=== PATIENT | male | born 1950 | race Caucasian/White ===

== ENCOUNTER 2017-04-05 14:45 | Emergency (ER) | payer MEDICARE ==
[~2017-04-05] VITALS: Ht 185.4 cm; Wt 73.0 kg
[~2017-04-05 14:45] MED LIST: ALPR0.5T99 PO; ASPI81 PO; CALC600T34 PO; CYCL-36 PO; ENAL5TAB98 PO; FERR65TA PO; HYDR-3533 PO; LOVA1TAB47 PO; NITR0.4S SL; TAMS0.4C67 PO; VITA10002 SL
[2017-04-05 14:47] VITALS: BP 145/82; PULSE 81; RESP 20; TEMP 98.4; O2SAT 96
--- NOTE | 2017-04-05 15:11 | PD ---
Physical Exam Date Seen by Provider: Apr 05, 2017 Time Seen by Provider: 15:09 Narrative 67 yo male here for evaluation of "something lodged on his throat". he states that it was possibly food. Feels like it was stuck. States that he drank water and now is better. he just wanted to get checked. Vitals are stable. Patient waiting bed placement. Data Data Last Documented VS Vital Signs Date Time Temp Pulse Resp B/P Pulse Ox O2 Delivery O2 Flow Rate FiO2 04/05/17 14:47 98.4 81 20 145/82 96 Room Air [facility] Medical Record Reviewed: Yes Supervised Visit with ANAY: No Compa Brice Apr 05, 2017 15:11
== END 2017-04-05 15:10 | disposition left against medical advice (07) ==
LOC: NED 14:45
DX: T18.128A Food in esophagus causing other injury, initial encounter (principal); Z53.21 Procedure and treatment not carried out due to patient leaving prior to being seen by health care provider
CPT/HCPCS: 99281

== ENCOUNTER 2018-01-18 08:36 | Observation (INO) | payer MEDICARE ==
[2018-01-18] VITALS (9 sets, daily range): BP systolic 138–167; BP diastolic 71–88; PULSE 58–68; RESP 16–18; TEMP 97.4–98.4; O2SAT 96–100
[~2018-01-18] VITALS: Ht 190.5 cm; Wt 72.6 kg
[2018-01-18] MEDS ORDERED: IOHEXOL 350 MG/ML 10 ML VIAL (for RAD DIAG) IVCONTRAST ONE (08:37)
[2018-01-18] MEDS ORDERED: MULT-65 PO (08:49)
[2018-01-18] MEDS ORDERED: ASPI-516 PO (08:49)
[2018-01-18] MEDS ORDERED: ALPR0.5T3 PO (08:49)
[2018-01-18] MEDS ORDERED: TRAM50TA PO (08:49)
[2018-01-18] MEDS ORDERED: TAMS5CAP PO (08:49)
[2018-01-18] MEDS ORDERED: PANT40TA3 PO (08:49)
[2018-01-18] MEDS ORDERED: SODIUM CHLOR 0.9% 1000 ML INJ 1,000 ML IV SCH (09:07)
[2018-01-18] MEDS: SODIUM CHLORIDE 0.9% FLUSH 10 ML FLUSH IV FLUSH PRN ×2 (09:14→15:17)
[2018-01-18] MEDS ORDERED: ONDANSETRON HCL 4 MG/2 ML VIAL IVP ONE (09:15)
[2018-01-18] MEDS ORDERED: MORPHINE SULFATE 4 MG/ML INJ IV PUSH ONE (09:15)
[2018-01-18 09:34] LABS: AUTOMATED NEUTROPHIL # 5.6 TH/MM3 (1.8-7.7); BASOPHIL # 0.1 TH/MM3 (0-0.2); EOSINOPHIL # 0.2 TH/MM3 (0-0.4); EOSINOPHIL % 2.2 % (0.0-4.0); HEMATOCRIT 38.5 % (39.0-51.0); HEMOGLOBIN 13.1 GM/DL (13.0-17.0); LYMPH % 9.2 % (9.0-44.0); LYMPHOCYTE # 0.6 TH/MM3 (1.0-4.8); MEAN CELL VOLUME 90.7 FL (80.0-100.0); MEAN CORPUSCULAR HGB CONC 34.2 % (32.0-36.0); MEAN PLATELET VOLUME 8.6 FL (7.0-11.0); MONO % 8.1 % (0.0-8.0); MONOCYTE # 0.6 TH/MM3 (0-0.9); NEUT % 79.5 % (16.0-70.0); PLATELET COUNT 196 TH/MM3 (150-450); RED BLOOD COUNT 4.24 MIL/MM3 (4.50-5.90); RED CELL DISTRIBUTION WIDTH 13.8 % (11.6-17.2)
[2018-01-18 09:46] LABS: ALBUMIN 4.3 GM/DL (3.4-5.0); AST (GOT) 22 U/L (15-37); BLOOD UREA NITROGEN 25 MG/DL (7-18); CALCIUM 9.4 MG/DL (8.5-10.1); CHLORIDE 104 MEQ/L (98-107); CREATININE 1.17 MG/DL (0.60-1.30); GLOMERULAR FILTRATION RATE 62 ML/MIN (>89); GLUCOSE,RANDOM 105 MG/DL (74-106); SODIUM (NA) 138 MEQ/L (136-145)
[2018-01-18 09:47] LABS: ALT (GPT) 29 U/L (12-78)
[2018-01-18 09:49] LABS: ALKALINE PHOSPHATASE 82 U/L (45-117); TOTAL BILIRUBIN ADULT 0.8 MG/DL (0.2-1.0); TOTAL PROTEIN 8.1 GM/DL (6.4-8.2)
[2018-01-18] MEDS ORDERED: FLUO20CA12 PO (09:59)
[2018-01-18] MEDS ORDERED: ATOR10TA15 PO (10:00)
[2018-01-18 11:13] LABS: BACTERIA, URINE RARE /hpf; BILIRUBIN, URINE NEG (NEG); BLOOD, URINE MOD (NEG); GLUCOSE,URINE NEG (NEG); KETONE, URINE 10 mg/dL (NEG); MUCUS URINE FEW /lpf (OCC); NITRITE,URINE NEG (NEG); SQUAMOUS EPITHELIAL CELL URINE <1 /hpf (0-5); URINE COLOR YELLOW (YELLW/STRAW); URINE LEUKOCYTE ESTERASE NEG (NEG)
--- NOTE | 2018-01-18 13:11 | PD ---
HPI Chief Complaint: Lump, Cyst, Hernia Time Seen by Provider: 09:07 Travel History International Travel<30 days: No Contact w/Intl Traveler<30days: No Traveled to known affect area: No History of Present Illness HPI This is a 67-year-old gentleman with history of hyperlipidemia, BPH, presents today with complaints of right-sided groin pain and right-sided flank pain. Patient states that he has had a hernia in his right inguinal area. He states normally has a small lump in that area. He states that last night he was having some discomfort in his right groin. He states that when he woke up this morning, he noted that the lump that he normally has in his groin was gone. He reports severe pain in his right-sided flank radiating to his right groin. He denies any history of kidney stones. He denies any history of abdominal surgery. He states he still has his appendix. He denies any fevers, chills. He does report he had some mild nausea earlier but none now. He has noted no blood in his urine. PFSH Past Medical History Arthritis: No Asthma: No Atrial Fibrillation: Yes Blood Disorders: No Heart Rhythm Problems: Yes Cancer: No Cardiovascular Problems: Yes High Cholesterol: No Chemotherapy: No Chest Pain: Yes Congestive Heart Failure: Yes COPD: No Diminished Hearing: No Endocrine: No Hypertension: Yes Immune Disorder: No Implanted Vascular Access Dvce: Yes Musculoskeletal: Yes (BACK PROBLEMS) Psychiatric: No Reproductive: No Respiratory: No Radiation Therapy: No Sleep Apnea: No Tetanus Vaccination: < 5 Years Influenza Vaccination: Yes Past Surgical History Abdominal Surgery: No AICD: Yes Arteriovenous Shunt: No Cardiac Surgery: Yes (AICD/PACER) Ear Surgery: No Endocrine Surgery: No Eye Surgery: No Genitourinary Surgery: No Gynecologic Surgery: No Insulin Pump: No Joint Replacement: No Oral Surgery: No Pacemaker: Yes Thoracic Surgery: No Tonsillectomy: Yes Other Surgery: Yes Social History Alcohol Use: No Tobacco Use: No (quit 20 years ago) Substance Use: No Allergies-Medications (Allergen,Severity, Reaction): Coded Allergies: No Known Allergies (Verified Adverse Reaction, Unknown, 01/18/18) Reported Meds & Prescriptions Reported Meds & Active Scripts Active Reported Atorvastatin (Atorvastatin Calcium) 10 Mg Tab 10 Mg PO HS Fluoxetine (Fluoxetine HCl) 20 Mg Capsule 20 Mg PO DAILY Multi-Vitamin Daily (Multiple Vitamin) 1 Tab Tab 1 Tab PO DAILY Aspirin 81 Mg Chew 81 Mg PO DAILY Flomax (Tamsulosin HCl) 0.4 Mg Cap 0.4 Mg PO HS Pantoprazole (Pantoprazole Sodium) 40 Mg Tab 40 Mg PO DAILY Alprazolam 0.5 Mg Tab 0.5 Mg PO DAILY PRN Tramadol (Tramadol HCl) 50 Mg Tab 50 Mg PO Q8H PRN Review of Systems Except as stated in HPI: all other systems reviewed are Neg General / Constitutional: No: Chills HENT: No: Headaches, Neck Pain Cardiovascular: No: Chest Pain or Discomfort, Palpitations Respiratory: No: Cough, Shortness of Breath Gastrointestinal: Positive: Nausea, Abdominal Pain (Right lower), No: Vomiting , Diarrhea Genitourinary: Positive: Other (Normally a inguinal fullness, none now.), No: Dysuria, Hematuria Musculoskeletal: No: Weakness, Pain Skin: No Other Neurologic: No: Weakness, Dizziness, Headache Physical Exam Narrative GENERAL: Well-developed well-nourished male in no acute respiratory distress. SKIN: Focused skin assessment warm/dry. HEAD: Atraumatic. Normocephalic. EYES: No scleral icterus. No injection or drainage. ENT: No nasal bleeding or discharge. Mucous membranes pink and moist. NECK: Trachea midline. No JVD. CARDIOVASCULAR: Regular rate and rhythm. No murmur appreciated. RESPIRATORY: No accessory muscle use. Clear to auscultation. Breath sounds equal bilaterally. GASTROINTESTINAL: Abdomen soft, non-tender, nondistended. Hepatic and splenic margins not palpable. There is no rebound or guarding. Patient states of pain feels deeper than where I am palpating. There is no inguinal hernia appreciated. MUSCULOSKELETAL: No obvious deformities. No clubbing. No cyanosis. No edema. BACK: No CVA tenderness. No rash. NEUROLOGICAL: Awake and alert. No obvious cranial nerve deficits. Motor grossly within normal limits. Normal speech. PSYCHIATRIC: Appropriate mood and affect; insight and judgment normal. Data Data Last Documented VS Vital Signs Date Time Temp Pulse Resp B/P (MAP) Pulse Ox O2 Delivery O2 Flow Rate FiO2 01/18/18 15:41 97.9 68 16 158/76 (103) 99 Room Air Orders Orders Complete Blood Count With Diff (01/18/18 09:07) Comprehensive Metabolic Panel (01/18/18 09:07) Lipase (01/18/18 09:07) Urinalysis - C+S If Indicated (01/18/18 09:07) Iv Access Insert/Monitor (01/18/18 09:07) Ecg Monitoring (01/18/18 09:07) Oximetry (01/18/18 09:07) Morphine Inj (Morphine Inj) (01/18/18 09:15) Ondansetron Inj (Zofran Inj) (01/18/18 09:15) Sodium Chlor 0.9% 1000 Ml Inj (Ns 1000 M (01/18/18 09:07) Sodium Chloride 0.9% Flush (Ns Flush) (01/18/18 09:15) Ct Abd/Pel W Iv Contrast(Rout) (01/18/18 11:34) Iohexol 350 Inj (Omnipaque 350 Inj) (01/18/18 08:37) Morphine Inj (Morphine Inj) (01/18/18 15:15) Vital Signs (Adult) Q4H (01/18/18 15:30) Activity Oob With Assistance (01/18/18 15:30) Diet Npo (01/18/18 Dinner) Sodium Chlor 0.9% 1000 Ml Inj (Ns 1000 M (01/18/18 16:00) Sodium Chloride 0.9% Flush (Ns Flush) (01/18/18 15:30) Sodium Chloride 0.9% Flush (Ns Flush) (01/18/18 21:00) Acetaminophen (Tylenol) (01/18/18 15:30) Ondansetron Inj (Zofran Inj) (01/18/18 15:30) Basic Metabolic Panel (Bmp) (01/19/18 06:00) Complete Blood Count With Diff (01/19/18 06:00) Scd Bilateral/Knee High HAIR.BID (01/18/18 15:30) Naloxone Inj (Narcan Inj) (01/18/18 15:30) Docusate Sodium-Senna (Nikki-Colace) (01/18/18 21:00) Magnesium Hydroxide Liq (Milk Of Magnesi (01/18/18 15:30) Consult Urology (01/18/18 ) Urinary Catheter Management HAIR.Q8H (01/18/18 15:30) Morphine Inj (Morphine Inj) (01/18/18 15:45) Acetamin-Hydrocod 325-5 Mg ([place] 5-325 (01/18/18 15:45) Alprazolam (Xanax) (01/18/18 15:45) Atorvastatin (Lipitor) (01/18/18 21:00) Pantoprazole (Protonix) (01/19/18 09:00) Tamsulosin (Flomax) (01/18/18 21:00) (Hub Use Only)Inp Phy Cons/Ref (01/18/18 ) Admit Order (Ed Use Only) (01/18/18 15:59) Labs Laboratory Tests Test 01/18/18 09:11 01/18/18 10:30 White Blood Count 7.0 TH/MM3 Red Blood Count 4.24 MIL/MM3 Hemoglobin 13.1 GM/DL Hematocrit 38.5 % Mean Corpuscular Volume 90.7 FL Mean Corpuscular Hemoglobin 31.0 PG Mean Corpuscular Hemoglobin Concent 34.2 % Red Cell Distribution Width 13.8 % Platelet Count 196 TH/MM3 Mean Platelet Volume 8.6 FL Neutrophils (%) (Auto) 79.5 % Lymphocytes (%) (Auto) 9.2 % Monocytes (%) (Auto) 8.1 % Eosinophils (%) (Auto) 2.2 % Basophils (%) (Auto) 1.0 % Neutrophils # (Auto) 5.6 TH/MM3 Lymphocytes # (Auto) 0.6 TH/MM3 Monocytes # (Auto) 0.6 TH/MM3 Eosinophils # (Auto) 0.2 TH/MM3 Basophils # (Auto) 0.1 TH/MM3 CBC Comment DIFF FINAL Differential Comment Blood Urea Nitrogen 25 MG/DL Creatinine 1.17 MG/DL Random Glucose 105 MG/DL Total Protein 8.1 GM/DL Albumin 4.3 GM/DL Calcium Level 9.4 MG/DL Alkaline Phosphatase 82 U/L Aspartate Amino Transf (AST/SGOT) 22 U/L Alanine Aminotransferase (ALT/SGPT) 29 U/L Total Bilirubin 0.8 MG/DL Sodium Level 138 MEQ/L Potassium Level 3.3 MEQ/L Chloride Level 104 MEQ/L Carbon Dioxide Level 24.0 MEQ/L Anion Gap 10 MEQ/L Estimat Glomerular Filtration Rate 62 ML/MIN Lipase 144 U/L Urine Color YELLOW Urine Turbidity CLEAR Urine pH 6.0 Urine Specific [place] 1.017 Urine Protein TRACE mg/dL Urine Glucose (UA) NEG mg/dL Urine Ketones 10 mg/dL Urine Occult Blood MOD Urine Nitrite NEG Urine Bilirubin NEG Urine Urobilinogen LESS THAN 2.0 MG/DL Urine Leukocyte Esterase NEG Urine RBC 100 /hpf Urine Squamous Epithelial Cells <1 /hpf Urine Bacteria RARE /hpf Urine Mucus FEW /lpf Microscopic Urinalysis Comment CULT NOT INDICATED MDM Medical Decision Making Medical Screen Exam Complete: Yes Emergency Medical Condition: Yes Differential Diagnosis Renal calculus versus appendicitis versus cystitis Narrative Course 67-year-old male presents today with complaints of left flank pain with radiation to his groin. Patient's very uncomfortable. He has been dosed twice with pain medication. CT scan shows a 7 mm ureteral calculus with significant hydronephrosis. Patient also has what appears to be urinary outlet obstruction secondary to an enlarged prostate. The patient is extremely uncomfortable. Given this, I would recommend admitting him for pain control. We are also going to perform a bladder scan to see if he has got a significant postvoid residual. There is a call out to the [facility]. He will also need a urology consult. Diagnosis Primary Impression: Obstructive uropathy Additional Impressions: Urinary outlet obstruction Ureteral and renal calculus Intractable pain Admitting Information Admitting Physician Requests: Observation Jose R Harman MD Jan 18, 2018 13:11
[2018-01-18] MEDS ORDERED: MORPHINE SULFATE 8 MG/ML INJ IV PUSH ONE (15:15)
[2018-01-18] MEDS ORDERED: SODIUM CHLORIDE 0.9% FLUSH 10 ML FLUSH IV FLUSH PRN (15:30)
[2018-01-18] MEDS ORDERED: NALOXONE HCL 0.4 MG/ML AMP IV PUSH PRN (15:30)
[2018-01-18] MEDS ORDERED: MAGNESIUM HYDROXIDE SUSP 30 ML CUP PO PRN (15:30)
[2018-01-18] MEDS ORDERED: ACETAMINOPHEN 325 MG TAB PO PRN (15:30)
[2018-01-18] MEDS ORDERED: ONDANSETRON HCL 4 MG/2 ML VIAL IVP PRN (15:30)
[2018-01-18] MEDS ORDERED: ALPRAZolam 0.5 MG TAB PO PRN (15:45)
[2018-01-18] MEDS ORDERED: ACETAMINOPHEN/HYDROcodone 325 MG/5 MG TAB PO PRN (15:45)
--- NOTE | 2018-01-18 15:46 | HHI.HP ---
HPI Service [facility] Primary Care Physician Teofilo Finney MD, PhD Admission Diagnosis obstructing ureteral calculi with hydronephrosis and bladder outlet obstruction Chief Complaint: right flank pain Travel History International Travel<30 Days: No Contact w/Intl Traveler <30 Da: No Traveled to Known Affected Are: No History of Present Illness This 67-year-old male patient with past medical history which includes atrial fibrillation status post ablation and AICD placement [address] Callejas, COPD, CHF echocardiogram 2015: Reveals EF of 55-60% with grade 1 diastolic dysfunction , hyperlipidemia, lumbar degenerative disc disease, anxiety and BPH. Patient presents emergency department today with complaints of severe right-sided flank pain with radiation to the right groin. Patient denies shortness of breath chest pain nausea vomiting diarrhea constipation fevers or chills. CT abdomen pelvis reviewed and reveals obstructing ureteral calculi with hydronephrosis and bladder outlet obstruction Review of Systems Constitutional: DENIES: Fatigue, Fever, Chills Respiratory: DENIES: Cough, Sputum production, Shortness of breath Cardiovascular: DENIES: Chest pain, Dyspnea on Exertion, Lower Extremity Edema Gastrointestinal: COMPLAINS OF: Abdominal pain, DENIES: Constipation, Diarrhea , Nausea, Vomiting Genitourinary: DENIES: Hematuria Musculoskeletal: COMPLAINS OF: Back pain (Right flank area) Neurologic: DENIES: Headache, Localized weakness, Speech Problems Psychiatric: DENIES: Anxiety, Confusion, Depression Past Family Social History Past Medical History atrial fibrillation status post ablation and AICD placement [address] Callejas , COPD, CHF transthoracic echocardiogram 2015: Reveals EF of 55-60% with grade 1 diastolic dysfunction, hyperlipidemia, lumbar degenerative disc disease, anxiety and BPH Past Surgical History Atrial fibrillation ablation and AICD placement 2014 Cataract surgery Tonsillectomy Reported Medications Atorvastatin (Atorvastatin Calcium) 10 Mg Tab 10 Mg PO HS Fluoxetine (Fluoxetine HCl) 20 Mg Capsule 20 Mg PO DAILY Multi-Vitamin Daily (Multiple Vitamin) 1 Tab Tab 1 Tab PO DAILY Aspirin 81 Mg Chew 81 Mg PO DAILY Flomax (Tamsulosin HCl) 0.4 Mg Cap 0.4 Mg PO HS Pantoprazole (Pantoprazole Sodium) 40 Mg Tab 40 Mg PO DAILY Alprazolam 0.5 Mg Tab 0.5 Mg PO DAILY Tramadol (Tramadol HCl) 50 Mg Tab 50 Mg PO Q8H PRN Allergies: Coded Allergies: No Known Allergies (Verified Adverse Reaction, Unknown, 01/18/18) Family History Noncontributory Social History Denies EtOH use or illicit drug use Denies current tobacco use former smoker quit in Physical Exam Vital Signs Vital Signs Date Time Temp Pulse Resp B/P (MAP) Pulse Ox O2 Delivery O2 Flow Rate FiO2 01/18/18 14:24 97.9 67 16 156/82 (106) 100 Room Air 01/18/18 11:30 97.8 67 16 138/76 (96) 96 Room Air 01/18/18 09:58 97.8 60 16 167/88 (114) 100 Room Air 01/18/18 09:20 17 01/18/18 09:08 17 100 Room Air 01/18/18 08:50 60 17 01/18/18 08:38 98.1 58 18 149/83 (105) 100 Physical Exam GENERAL: This is a well-nourished, well-developed patient, SKIN: No rashes, ecchymoses or lesions. Cool and dry. HEAD: Atraumatic. Normocephalic. No temporal or scalp tenderness. EYES: Extraocular motions intact. No scleral icterus. No injection or drainage. CARDIOVASCULAR: Regular rate and rhythm RESPIRATORY: Clear to auscultation. Breath sounds equal bilaterally. GASTROINTESTINAL: Abdomen soft, non-tender, nondistended. MUSCULOSKELETAL: Extremities without clubbing, cyanosis, or edema. No joint tenderness, effusion, or edema noted. No calf tenderness. Negative Homans sign bilaterally. NEUROLOGICAL: Awake and alert. Motor and sensory grossly within normal limits. Five out of 5 muscle strength in all muscle groups. Normal speech. Laboratory Laboratory Tests Test 01/18/18 09:11 01/18/18 10:30 White Blood Count 7.0 Red Blood Count 4.24 Hemoglobin 13.1 Hematocrit 38.5 Mean Corpuscular Volume 90.7 Mean Corpuscular Hemoglobin 31.0 Mean Corpuscular Hemoglobin Concent 34.2 Red Cell Distribution Width 13.8 Platelet Count 196 Mean Platelet Volume 8.6 Neutrophils (%) (Auto) 79.5 Lymphocytes (%) (Auto) 9.2 Monocytes (%) (Auto) 8.1 Eosinophils (%) (Auto) 2.2 Basophils (%) (Auto) 1.0 Neutrophils # (Auto) 5.6 Lymphocytes # (Auto) 0.6 Monocytes # (Auto) 0.6 Eosinophils # (Auto) 0.2 Basophils # (Auto) 0.1 CBC Comment DIFF FINAL Differential Comment Blood Urea Nitrogen 25 Creatinine 1.17 Random Glucose 105 Total Protein 8.1 Albumin 4.3 Calcium Level 9.4 Alkaline Phosphatase 82 Aspartate Amino Transf (AST/SGOT) 22 Alanine Aminotransferase (ALT/SGPT) 29 Total Bilirubin 0.8 Sodium Level 138 Potassium Level 3.3 Chloride Level 104 Carbon Dioxide Level 24.0 Anion Gap 10 Estimat Glomerular Filtration Rate 62 Lipase 144 Urine Color YELLOW Urine Turbidity CLEAR Urine pH 6.0 Urine Specific [place] 1.017 Urine Protein TRACE Urine Glucose (UA) NEG Urine Ketones 10 Urine Occult Blood MOD Urine Nitrite NEG Urine Bilirubin NEG Urine Urobilinogen LESS THAN 2.0 Urine Leukocyte Esterase NEG Urine RBC 100 Urine Squamous Epithelial Cells <1 Urine Bacteria RARE Urine Mucus FEW Microscopic Urinalysis Comment CULT NOT INDICATED Result Diagram: 01/18/1891001/18/18910 Caprini VTE Risk Assessment Caprini VTE Risk Assessment: No/Low Risk (score <= 1) Caprini Risk Assessment Model Point Value = 1 Point Value = 2 Point Value = 3 Point Value = 5 Age 41-60 Minor surgery BMI > 25 kg/m2 Swollen legs Varicose veins or History of unexplained or recurrent spontaneous Oral contraceptives or hormone replacement Sepsis (< 1 month) Serious lung disease, including pneumonia (< 1 month) Abnormal pulmonary function Acute myocardial infarction Congestive heart failure (< 1 month) History of inflammatory bowel disease Medical patient at bed rest Age 61-74 Arthroscopic surgery Major open surgery (> 45 min) Laparoscopic surgery (> 45 min) Malignancy Confined to bed (> 72 hours) Immobilizing plaster cast Central venous access Age >= 75 History of VTE Family history of VTE Factor V Leiden Prothrombin [id number] Lupus anticoagulant Anticardiolipin antibodies Elevated serum homocysteine Heparin-induced thrombocytopenia Other congenital or acquired thrombophilia Stroke (< 1 month) Elective arthroplasty Hip, pelvis, or leg fracture Acute spinal cord injury (< 1 month) Prophylaxis Regimen Total Risk Factor Score Risk Level Prophylaxis Regimen 0-1 Low Early ambulation 2 Moderate Order ONE of the following: *Sequential Compression Device (SCD) *Heparin 5000 units SQ BID 3-4 Higher Order ONE of the following medications: *Heparin 5000 units SQ TID *Enoxaparin/Lovenox 40 mg SQ daily (WT < 150 kg, CrCl > 30 mL/min) *Enoxaparin/Lovenox 30 mg SQ daily (WT < 150 kg, CrCl > 10-29 mL/min) *Enoxaparin/Lovenox 30 mg SQ BID (WT < 150 kg, CrCl > 30 mL/min) AND/OR *Sequential Compression Device (SCD) 5 or more Highest Order ONE of the following medications: *Heparin 5000 units SQ TID (Preferred with Epidurals) *Enoxaparin/Lovenox 40 mg SQ daily (WT < 150 kg, CrCl > 30 mL/min) *Enoxaparin/Lovenox 30 mg SQ daily (WT < 150 kg, CrCl > 10-29 mL/min) *Enoxaparin/Lovenox 30 mg SQ BID (WT < 150 kg, CrCl > 30 mL/min) AND *Sequential Compression Device (SCD) Assessment and Plan Problem List: (1) Renal calculus ICD Codes: N20.0 - Calculus of kidney Plan: This 67-year-old male patient with past medical history which includes atrial fibrillation status post ablation and AICD placement [address] Callejas , COPD, CHF echocardiogram 2015: Reveals EF of 55-60% with grade 1 diastolic dysfunction, hyperlipidemia, lumbar degenerative disc disease, anxiety and BPH. Patient presents emergency department today with complaints of severe right- sided flank pain with radiation to the right groin. Patient denies shortness of breath chest pain nausea vomiting diarrhea constipation fevers or chills. CT abdomen pelvis reviewed and reveals ureteral calculi with hydronephrosis and bladder outlet obstruction. Also what appears to be a superficial fluid collection left side of abd await radiology report IVF for hydration Scheduled Toradol Recheck BMP and CBC in AM Morphine and [place] as needed for pain bowel regiment Continue home flomax Place ingram Consult Urology, appreciate input. Discussed case with Urology. If able to control patient's pain on oral medications plan to DC patient Sunday and have patient follow up with urology on Sunday as an outpatient. (2) Hydronephrosis ICD Codes: N13.30 - Unspecified hydronephrosis Status: Acute Plan: - see above (3) Obstructive uropathy ICD Codes: N13.9 - Obstructive and reflux uropathy, unspecified Status: Acute Plan: - see above (4) Intractable pain ICD Codes: R52 - Pain, unspecified Status: Acute (5) Anxiety ICD Codes: F41.9 - Anxiety disorder, unspecified Status: Chronic Plan: Continue patient's home Alprazolam as needed for anxiety Assessment and Plan Patient examined. Assessment and plan formulated with Jaida Menjivar PA-C. I agree with the above. Case discussed at bedside with pt and Urology, Dr. Yates. CT abd/pelvis (01/18/18) --> right hydronephrosis with proximal obstructing 7mm ureteral stone. Pt presented to ER with c/o severe right flank pain. - IVFs - scheduled toradol - prn norco/morphine - ingram d/t BPH and urinary retention - repeat BMP in AM - Pt will likely require cystoscopy with ureteral stone extraction inpt vs outpt Problem Qualifiers (1) Hydronephrosis: Qualified Codes: N13.2 - Hydronephrosis with renal and ureteral calculous obstruction Jaiad Menjivar Jan 18, 2018 15:46 Ryley Tolbert DO Jan 18, 2018 22:21
[2018-01-18] MEDS: SODIUM CHLOR 0.9% 1000 ML INJ 1,000 ML IV SCH (16:13)
--- NOTE | 2018-01-18 16:58 | PD.CONS ---
HPI Service Urology Consult Requested By Reason for Consult Nephrolithiasis Primary Care Physician Teofilo Finney MD, PhD Diagnosis: (1) Renal calculus ICD Code: N20.0 - Calculus of kidney (2) Hydronephrosis ICD Code: N13.30 - Unspecified hydronephrosis (3) Obstructive uropathy ICD Code: N13.9 - Obstructive and reflux uropathy, unspecified (4) Intractable pain ICD Code: R52 - Pain, unspecified (5) Hyperlipidemia ICD Code: E78.5 - Hyperlipidemia, unspecified (6) Anxiety ICD Code: F41.9 - Anxiety disorder, unspecified History of Present Illness 67yo male admitted with right sided hydronephrosis and proximal obstructing 7mm ureteral stone. Patient reports he woke up this am with sever right flank pain, radiating to the groin, 10/10, with nausea. The pain was persistent. He has a family history of stones, however he himself has not had a stone. He also reports significant lower urinary tract symptoms with frequency, urgency and nocturia. Lee catheter was placed in the Ed due to difficulty voiding. He is on Flomax. No fevers. Review of Systems ROS Limitations: Clinical Condition Eyes: DENIES: Blurred vision Ears, nose, mouth, throat: DENIES: Hearing loss Respiratory: DENIES: Cough Cardiovascular: DENIES: Chest pain Gastrointestinal: COMPLAINS OF: Abdominal pain, Nausea Genitourinary: COMPLAINS OF: Urinary frequency, Urgency, Nocturia Musculoskeletal: COMPLAINS OF: Back pain, DENIES: Joint pain Integumentary: DENIES: Rash Neurologic: DENIES: Headache Psychiatric: DENIES: Anxiety Except as stated in HPI: all other systems reviewed are Neg Past Family Social History Past Medical History atrial fibrillation status post ablation and AICD placement [address] Callejas , COPD, CHF transthoracic echocardiogram 2015: Reveals EF of 55-60% with grade 1 diastolic dysfunction, hyperlipidemia, lumbar degenerative disc disease, anxiety and BPH Past Surgical History Atrial fibrillation ablation and AICD placement 2015 Cataract surgery Tonsillectomy Reported Medications Reported Meds & Active Scripts Active Reported Atorvastatin (Atorvastatin Calcium) 10 Mg Tab 10 Mg PO HS Fluoxetine (Fluoxetine HCl) 20 Mg Capsule 20 Mg PO DAILY Multi-Vitamin Daily (Multiple Vitamin) 1 Tab Tab 1 Tab PO DAILY Aspirin 81 Mg Chew 81 Mg PO DAILY Flomax (Tamsulosin HCl) 0.4 Mg Cap 0.4 Mg PO HS Pantoprazole (Pantoprazole Sodium) 40 Mg Tab 40 Mg PO DAILY Alprazolam 0.5 Mg Tab 0.5 Mg PO DAILY PRN Tramadol (Tramadol HCl) 50 Mg Tab 50 Mg PO Q8H PRN Allergies: Coded Allergies: No Known Allergies (Verified Adverse Reaction, Unknown, 01/18/18) Active Ordered Medications Current Medications Medications (Trade) Dose Ordered Sig/Corey Route Start Time Stop Time Status Last Admin Sodium Chloride 1,000 ml @ 50 mls/hr Q20H IV 01/18/18 16:00 01/18/18 16:13 (NS Flush) 2 ml UNSCH PRN IV FLUSH 01/18/18 15:30 (NS Flush) 2 ml BID IV FLUSH 01/18/18 21:00 (Tylenol) 650 mg Q4H PRN PO 01/18/18 15:30 (Zofran Inj) 4 mg Q6H PRN IVP 01/18/18 15:30 (Narcan Inj) 0.4 mg UNSCH PRN IV PUSH 01/18/18 15:30 (Nikki-Colace) 1 tab BID PO 01/18/18 21:00 (Milk Of Magnesia Liq) 30 ml Q12H PRN PO 01/18/18 15:30 (Morphine Inj) 4 mg Q3H PRN IV PUSH 01/18/18 15:45 ([place] 5-325 Mg) 1 tab Q4H PRN PO 01/18/18 15:45 (Xanax) 0.5 mg DAILY PRN PO 01/18/18 15:45 (Lipitor) 10 mg HS PO 01/18/18 21:00 (Protonix) 40 mg DAILY PO 01/19/18 09:00 (Flomax) 0.4 mg HS PO 01/18/18 21:00 ([place] 10-325 Mg) 1 tab Q4H PRN PO 01/18/18 17:00 UNV (KCl) 20 meq ONCE ONCE PO 01/18/18 17:00 01/18/18 17:01 UNV (Catapres) 0.1 mg Q6H PRN PO 01/18/18 17:00 UNV (Toradol Inj) 15 mg TID IV PUSH 01/18/18 18:00 UNV (PROzac) 20 mg DAILY PO 01/19/18 09:00 UNV Family History Patient has a family history of kidney stones. Social History Denies EtOH use or illicit drug use Denies current tobacco use former smoker quit Physical Exam Vital Signs Date Time Temp Pulse Resp B/P (MAP) Pulse Ox O2 Delivery O2 Flow Rate FiO2 01/18/18 15:41 97.9 68 16 158/76 (103) 99 Room Air 01/18/18 15:22 15 01/18/18 14:24 97.9 67 16 156/82 (106) 100 Room Air 01/18/18 11:30 97.8 67 16 138/76 (96) 96 Room Air 01/18/18 09:58 97.8 60 16 167/88 (114) 100 Room Air 01/18/18 09:20 17 01/18/18 09:08 17 100 Room Air 01/18/18 08:50 60 17 01/18/18 08:38 98.1 58 18 149/83 (105) 100 Physical Exam GENERAL: This is a well-nourished, well-developed patient, in no apparent distress. SKIN: No rashes, ecchymoses or lesions. Cool and dry. HEAD: Atraumatic. Normocephalic. EYES: . Extraocular motions intact. No scleral icterus. No injection or drainage. ENT: Nose without bleeding, purulent drainage. Airway patent. NECK: Trachea midline. No JVD or lymphadenopathy. CARDIOVASCULAR: Normal pulse RESPIRATORY: nonlabored GASTROINTESTINAL: Abdomen soft, non-tender, nondistended. GENITOURINARY: Lee catheter in place MUSCULOSKELETAL: Extremities without clubbing, cyanosis, or edema. NEUROLOGICAL: Awake and alert. Motor and sensory grossly within normal limits. Normal speech. Lab results reviewed: Yes Laboratory Tests Test 01/18/18 09:11 01/18/18 10:30 White Blood Count 7.0 Red Blood Count 4.24 Hemoglobin 13.1 Hematocrit 38.5 Mean Corpuscular Volume 90.7 Mean Corpuscular Hemoglobin 31.0 Mean Corpuscular Hemoglobin Concent 34.2 Red Cell Distribution Width 13.8 Platelet Count 196 Mean Platelet Volume 8.6 Neutrophils (%) (Auto) 79.5 Lymphocytes (%) (Auto) 9.2 Monocytes (%) (Auto) 8.1 Eosinophils (%) (Auto) 2.2 Basophils (%) (Auto) 1.0 Neutrophils # (Auto) 5.6 Lymphocytes # (Auto) 0.6 Monocytes # (Auto) 0.6 Eosinophils # (Auto) 0.2 Basophils # (Auto) 0.1 CBC Comment DIFF FINAL Differential Comment Blood Urea Nitrogen 25 Creatinine 1.17 Random Glucose 105 Total Protein 8.1 Albumin 4.3 Calcium Level 9.4 Alkaline Phosphatase 82 Aspartate Amino Transf (AST/SGOT) 22 Alanine Aminotransferase (ALT/SGPT) 29 Total Bilirubin 0.8 Sodium Level 138 Potassium Level 3.3 Chloride Level 104 Carbon Dioxide Level 24.0 Anion Gap 10 Estimat Glomerular Filtration Rate 62 Lipase 144 Urine Color YELLOW Urine Turbidity CLEAR Urine pH 6.0 Urine Specific [place] 1.017 Urine Protein TRACE Urine Glucose (UA) NEG Urine Ketones 10 Urine Occult Blood MOD Urine Nitrite NEG Urine Bilirubin NEG Urine Urobilinogen LESS THAN 2.0 Urine Leukocyte Esterase NEG Urine RBC 100 Urine Squamous Epithelial Cells <1 Urine Bacteria RARE Urine Mucus FEW Microscopic Urinalysis Comment CULT NOT INDICATED Result Diagram: 01/18/18 0911 01/18/18 0911 Personally reviewed images: Yes Imaging CT ab/Pel: Obstructing stone noted mid/proximal right ureter with hydronephrosis Assessment and Plan Problem List: (1) Obstructive uropathy ICD Code: N13.9 - Obstructive and reflux uropathy, unspecified Status: Acute (2) Intractable pain ICD Code: R52 - Pain, unspecified Status: Acute (3) Renal calculus ICD Code: N20.0 - Calculus of kidney Assessment and Plan Patient with right obstructing ureteral stone No fevers, normal WBC Pain currently controlled Patient will likely need intervention for the stone At this time, no emergent procedure indicated. If patient's pain is controlled with PO medication, may discharge with plan for surgical intervention on Sunday at Urology clinic with potential ESWL vs Ureteral stent. We will try to perform ESWL as this may treat his stone and pain. If patient's pain does not improve or develops fevers, then will require inpatient stent Patient understands and agrees with above plan Lee catheter may remain in place until Urology follow-up Will follow Curry Yates MD Jan 18, 2018 16:58
[2018-01-18] MEDS ORDERED: cloNIDine HCL 0.1 MG TAB PO PRN (17:00)
[2018-01-18] MEDS ORDERED: POTASSIUM CHLORIDE 20 MEQ CONTROLLED RELEASE TAB PO ONE (17:00)
[2018-01-18] MEDS ORDERED: KETOROLAC TROMETHAMINE 10 MG TAB PO SCH (18:00)
[2018-01-18] MEDS: KETOROLAC TROMETHAMINE 30 MG/ML (IVP) VIAL IV PUSH SCH (18:22)
[2018-01-18] MEDS: DOCUSATE SODIUM 50 MG/SENNA 8.6 MG TAB PO SCH (20:24)
[2018-01-18] MEDS: ACETAMINOPHEN/HYDROcodone 325 MG/10 MG TAB PO PRN (20:26)
[2018-01-18] MEDS: SODIUM CHLORIDE 0.9% FLUSH 10 ML FLUSH IV FLUSH SCH (20:28)
[2018-01-18] MEDS ORDERED: TAMSULOSIN HCL 0.4 MG CAP PO SCH (21:00)
[2018-01-18] MEDS ORDERED: ATORVASTATIN 10 MG TAB PO SCH (21:00)
[2018-01-18] MEDS: MORPHINE SULFATE 4 MG/ML INJ IV PUSH PRN (23:36)
[2018-01-19] VITALS: BP 112/66; PULSE 55; RESP 18; TEMP 97.7; O2SAT 98
[2018-01-19] MEDS: ACETAMINOPHEN/HYDROcodone 325 MG/10 MG TAB PO PRN ×3 (02:07→11:31)
[2018-01-19] MEDS: MORPHINE SULFATE 4 MG/ML INJ IV PUSH PRN ×2 (04:03→09:02)
[2018-01-19 05:29] LABS: BASOPHIL # 0.1 TH/MM3 (0-0.2); BASOPHIL % 1.3 % (0.0-2.0); EOSINOPHIL # 0.2 TH/MM3 (0-0.4); EOSINOPHIL % 4.6 % (0.0-4.0); HEMATOCRIT 33.5 % (39.0-51.0); HEMOGLOBIN 11.5 GM/DL (13.0-17.0); LYMPH % 18.7 % (9.0-44.0); LYMPHOCYTE # 0.9 TH/MM3 (1.0-4.8); MEAN CELL VOLUME 91.2 FL (80.0-100.0); MEAN CORPUSCULAR HEMOGLOBIN 31.2 PG (27.0-34.0); MEAN CORPUSCULAR HGB CONC 34.2 % (32.0-36.0); MEAN PLATELET VOLUME 8.8 FL (7.0-11.0); MONO % 11.3 % (0.0-8.0); MONOCYTE # 0.5 TH/MM3 (0-0.9); NEUT % 64.1 % (16.0-70.0); PLATELET COUNT 156 TH/MM3 (150-450); RED BLOOD COUNT 3.68 MIL/MM3 (4.50-5.90); RED CELL DISTRIBUTION WIDTH 14.1 % (11.6-17.2); WHITE BLOOD COUNT 4.6 TH/MM3 (4.0-11.0)
--- NOTE | 2018-01-19 05:38 | RADRPT ---
EXAM DATE/TIME: 01/19/2018 04:38 [facility] COMPARISON: CHEST SINGLE AP, September 01, 2015, 13:42. INDICATIONS : Congestive heart failure. MEDICAL HISTORY : Cardiovascular disease. Congestive heart failure. Hypertension.AFIB SURGICAL HISTORY : Pacemaker. ENCOUNTER: Initial ACUITY: 1 day PAIN SCORE: 0/10 LOCATION: Bilateral chest FINDINGS: A single view of the chest demonstrates the lungs to be symmetrically aerated without evidence of mas s, infiltrate or effusion. The cardiomediastinal contours are unremarkable. Osseous structures are intact. A defibrillator device is in place via a left sided approach. CONCLUSION: 1. No acute cardiopulmonary disease. Felipe Milton MD on January 19, 2018 at 5:37 Board Certified Radiologist. This report was verified electronically.
[2018-01-19 06:08] LABS: BICARBONATE 28.7 MEQ/L (21.0-32.0); CALCIUM 8.4 MG/DL (8.5-10.1); CREATININE 0.96 MG/DL (0.60-1.30)
[2018-01-19] MEDS: SODIUM CHLORIDE 0.9% FLUSH 10 ML FLUSH IV FLUSH SCH (07:26)
[2018-01-19 08:00] VITALS: BP 137/72; PULSE 70; RESP 16; TEMP 97.8; O2SAT 94
[2018-01-19] MEDS ORDERED: FLUoxetine HCL 20 MG CAP PO SCH (09:00)
[2018-01-19] MEDS ORDERED: PANTOPRAZOLE SOD 40 MG DELAYED RELEASE TAB PO SCH (09:00)
[2018-01-19] MEDS: DOCUSATE SODIUM 50 MG/SENNA 8.6 MG TAB PO SCH (09:03)
[2018-01-19] MEDS ORDERED: KETO10 PO ×2 (11:03→17:08)
[2018-01-19] MEDS: KETOROLAC TROMETHAMINE 30 MG/ML (IVP) VIAL IV PUSH SCH ×2 (11:05→11:29)
[2018-01-19] MEDS: SODIUM CHLOR 0.9% 1000 ML INJ 1,000 ML IV SCH (11:06)
[2018-01-19 12:00] VITALS: BP 110/63; PULSE 57; RESP 17; TEMP 97.5; O2SAT 98
--- NOTE | 2018-01-19 12:22 | RADRPT ---
EXAM DATE/TIME: 01/18/2018 12:48 [facility] COMPARISON: No previous studies available for comparison. INDICATIONS : Abdominal pain radiating to the right flank. IV CONTRAST: 90 cc Omnipaque 350 (iohexol) IV ORAL CONTRAST: No oral contrast ingested. RADIATION DOSE: 6.05 CTDIvol (mGy) MEDICAL HISTORY : Cardiovascular disease. Congestive heart failure. Hypertension.AFIB SURGICAL HISTORY : Pacemaker. ENCOUNTER: Initial ACUITY: 1 day PAIN SCALE: 6/10 LOCATION: Right flank TECHNIQUE: Volumetric scanning of the abdomen and pelvis was performed. Using automated exposure control and ad justment of the mA and/or kV according to patient size, radiation dose was kept as low as reasonably achievable to obtain optimal diagnostic quality images. DICOM format image data is available electro nically for review and comparison. FINDINGS: LOWER LUNGS: Minimal airspace disease at the lung bases likely reflecting atelectasis. LIVER: Small subcentimeter hypodense lesion in segment 4 the liver inferiorly which is too small to fully ch aracterize. Liver is otherwise unremarkable. Gallbladder is mildly distended but otherwise unremarkab le by CT. SPLEEN: Normal size without lesion. PANCREAS: Within normal limits. KIDNEYS: There is moderate to severe right-sided hydronephrosis with a 7 mm calcified calculus in the proximal ureter just beyond the UPJ. There is an additional 6 mm calyceal calculus in the inferior pole the r ight kidney. There is a 3 mm calyceal calculus in the inferior pole of the left kidney. No left-sided hydronephrosis. There is a 3.5 cm exophytic cyst in the anterior-inferior pole of the right kidney. ADRENAL GLANDS: Within normal limits. VASCULAR: Moderate atherosclerotic calcifications without flow-limiting stenosis or aneurysm. BOWEL/MESENTERY: Small to moderate amount of stool throughout the colon. Otherwise, no evidence for obstruction. No si gnificant free fluid or drainable fluid collection. ABDOMINAL WALL: There is an 8.36 x 3.1 cm fat-containing mass in the left lateral abdominal wall consistent with lipo ma. RETROPERITONEUM: There is no lymphadenopathy. BLADDER: Moderately distended without radiopaque bladder calculi. REPRODUCTIVE: Nonspecific prostate enlargement. INGUINAL: There is no lymphadenopathy or hernia. MUSCULOSKELETAL: S. shaped scoliosis of the thoracolumbar spine with associated degenerative spondylosis. Probable old healed posterior inferior right rib fracture. CONCLUSION: 1. 7 mm obstructing calcified proximal right ureteral calculus with moderate severe right-sided hydro nephrosis. 2. Additional 6 mm calyceal calculus in the inferior pole of the right kidney and a 3 mm calyceal alexandre culus in the inferior pole of the left kidney. 3. Nonspecific prostate enlargement with moderately distended bladder. This may reflect some degree o f bladder outlet obstruction. 4. Ancillary findings include 8.4 cm left lateral abdominal wall lipoma, scoliosis of the thoracolumb ar spine with associated degenerative spondylosis, and subcentimeter hypodense lesion in segment 4 of the liver which is too small to fully characterize. Dallin Cheung MD on January 18, 2018 at 13:07 Board Certified Radiologist. This report was verified electronically.
--- NOTE | 2018-01-19 14:48 | HHI.DS ---
Discharge Summary Admission Date Jan 18, 2018 at 16:03 Discharge Date: Jan 19, 2018 Admitting Diagnosis obstructing ureteral calculi with hydronephrosis and bladder outlet obstruction (1) Renal calculus Diagnosis: Principal ICD Codes: N20.0 - Calculus of kidney (2) Hydronephrosis Diagnosis: Principal ICD Codes: N13.30 - Unspecified hydronephrosis Status: Acute (3) Obstructive uropathy Diagnosis: Principal ICD Codes: N13.9 - Obstructive and reflux uropathy, unspecified Status: Acute (4) Intractable pain Diagnosis: Principal ICD Codes: R52 - Pain, unspecified Status: Acute (5) Anxiety Diagnosis: Secondary ICD Codes: F41.9 - Anxiety disorder, unspecified Status: Chronic Consultants Dr. Yates, Urology Procedures none Brief History This 67-year-old male patient with past medical history which includes atrial fibrillation status post ablation and AICD placement [address] Callejas, COPD, CHF echocardiogram 2015: Reveals EF of 55-60% with grade 1 diastolic dysfunction , hyperlipidemia, lumbar degenerative disc disease, anxiety and BPH. Patient presents emergency department today with complaints of severe right-sided flank pain with radiation to the right groin. Patient denies shortness of breath chest pain nausea vomiting diarrhea constipation fevers or chills. CT abdomen pelvis reviewed and reveals obstructing ureteral calculi with hydronephrosis and bladder outlet obstruction CBC/BMP: 01/19/18 0354 01/19/18 0354 Significant Findings Laboratory Tests Test 01/18/18 09:11 01/18/18 10:30 01/19/18 03:54 Red Blood Count 4.24 MIL/MM3 (4.50-5.90) 3.68 MIL/MM3 (4.50-5.90) Hematocrit 38.5 % (39.0-51.0) 33.5 % (39.0-51.0) Neutrophils (%) (Auto) 79.5 % (16.0-70.0) Monocytes (%) (Auto) 8.1 % (0.0-8.0) 11.3 % (0.0-8.0) Lymphocytes # (Auto) 0.6 TH/MM3 (1.0-4.8) 0.9 TH/MM3 (1.0-4.8) Blood Urea Nitrogen 25 MG/DL (7-18) 20 MG/DL (7-18) Potassium Level 3.3 MEQ/L (3.5-5.1) Estimat Glomerular Filtration Rate 62 ML/MIN (>89) 78 ML/MIN (>89) Urine Ketones 10 mg/dL (NEG) Urine Occult Blood MOD (NEG) Urine RBC 100 /hpf (0-3) Urine Bacteria RARE /hpf (NONE) Urine Mucus FEW /lpf (OCC) Hemoglobin 11.5 GM/DL (13.0-17.0) Eosinophils (%) (Auto) 4.6 % (0.0-4.0) Calcium Level 8.4 MG/DL (8.5-10.1) Chloride Level 108 MEQ/L (98-107) Imaging Last Impressions Chest X-Ray 01/19/18 0600 Signed Impressions: Service Date/Time: Friday, January 19, 2018 04:38 - CONCLUSION: 1. No acute cardiopulmonary disease. Felipe Milton MD Abdomen/Pelvis CT 01/18/18 1134 Signed Impressions: Service Date/Time: Thursday, January 18, 2018 12:48 - CONCLUSION: 1. 7 mm obstructing calcified proximal right ureteral calculus with moderate severe right-sided hydronephrosis. 2. Additional 6 mm calyceal calculus in the inferior pole of the right kidney and a 3 mm calyceal calculus in the inferior pole of the left kidney. 3. Nonspecific prostate enlargement with moderately distended bladder. This may reflect some degree of bladder outlet obstruction. 4. Ancillary findings include 8.4 cm left lateral abdominal wall lipoma, scoliosis of the thoracolumbar spine with associated degenerative spondylosis, and subcentimeter hypodense lesion in segment 4 of the liver which is too small to fully characterize. Dallin Cheung MD PE at Discharge GENERAL: This is a well-nourished, well-developed patient, CARDIOVASCULAR: Regular rate and rhythm RESPIRATORY: Clear to auscultation. Breath sounds equal bilaterally. GASTROINTESTINAL: Abdomen soft, non-tender, nondistended. MUSCULOSKELETAL: Extremities without clubbing, cyanosis, or edema. No joint tenderness, effusion, or edema noted. No calf tenderness. Negative Homans sign bilaterally. Hospital Course Renal calculus This 67-year-old male patient with past medical history which includes atrial fibrillation status post ablation and AICD placement [address] Callejas, COPD, CHF echocardiogram 2015: Reveals EF of 55-60% with grade 1 diastolic dysfunction , hyperlipidemia, lumbar degenerative disc disease, anxiety and BPH. Patient presents emergency department today with complaints of severe right-sided flank pain with radiation to the right groin. Patient denies shortness of breath chest pain nausea vomiting diarrhea constipation fevers or chills. CT abdomen pelvis reviewed and reveals a 7 mm obstructing calcified proximal right ureteral calculus with moderate severe right-sided hydronephrosis. Additional 6 mm calyceal calculus in the inferior pole of the right kidney with a 3 mm calyceal calculus in the inferior pole of the left kidney nonspecific prostate enlargement with moderately distended bladder this may reflect some degree of bladder outlet obstruction. Ancillary findings included 8.4 cm left lateral abdominal wall lipoma, scoliosis of the thoracolumbar spine with associated degenerative spondylolisthesis, and subcentimeter hypodense lesion in the segment of 4 of the liver which is too small to fully characterize IVF for hydration Scheduled Toradol Morphine and [place] as needed for pain bowel regiment Continue home flomax Place ingram Consult Urology, appreciate input. Discussed case with Urology. Patient's pain is controlled on oral pain medication. Patient to follow up with urology on Sunday as an outpatient. Hydronephrosis - see above Obstructive uropathy - see above Anxiety Continue patient's home Alprazolam as needed for anxiety Pt Condition on Discharge: Stable Discharge Disposition: Disch w/ Home Health Serv Discharge Instructions DIET: Follow Instructions for: Heart Healthy Diet Activities you can perform: Regular-No Restrictions Follow up Referrals: Urology - 2-3 Days with Curry Yates MD New Medications: Ketorolac (Ketorolac) 10 Mg Tab 10 MG PO Q6HR PRN for PAIN for 5 Days, TAB 0 Refills Continued Medications: Alprazolam (Alprazolam) 0.5 Mg Tab 0.5 MG PO DAILY PRN for ANXIETY, TAB 0 Refills Aspirin (Aspirin) 81 Mg Chew 81 MG PO DAILY, TAB 0 Refills Atorvastatin (Atorvastatin) 10 Mg Tab 10 MG PO HS for Cholesterol Management, #30 TAB 0 Refills Fluoxetine (Fluoxetine) 20 Mg Capsule 20 MG PO DAILY, #30 CAP 0 Refills Multiple Vitamin (Multi-Vitamin Daily) 1 Tab Tab 1 TAB PO DAILY for Nutritional Supplement, TAB 0 Refills Pantoprazole (Pantoprazole) 40 Mg Tab 40 MG PO DAILY for Reflux, #30 TAB 0 Refills Tamsulosin (Flomax) 0.4 Mg Cap 0.4 MG PO HS for Manage Prostate Problems, #30 CAP 0 Refills Discontinued Medications: Tramadol (Tramadol) 50 Mg Tab 50 MG PO Q8H PRN for PAIN, TAB 0 Refills Additional Information Patient examined. Assessment and plan formulated with Jaida Menjivar PA-C. I agree with the above. Jaida Menjivar Jan 19, 2018 14:48 Ryley Tolbert DO Jan 22, 2018 10:22
--- NOTE | 2018-01-19 14:48 | HHI.DCPOC ---
Discharge Care Plan Diagnosis: (1) Intractable pain (2) Renal calculus (3) Hydronephrosis (4) Obstructive uropathy Goals to Promote Your Health * To prevent worsening of your condition and complications * To maintain your health at the optimal level Directions to Meet Your Goals Take your medications as prescribed Follow your dietary instruction Follow activity as directed Keep your appointments as scheduled Take your immunizations and boosters as scheduled If your symptoms worsen call your PCP, if no PCP go to Urgent Care Center or Emergency Room Smoking is Dangerous to Your Health. Avoid second hand smoke Call the 24-hour hour crisis hotline for domestic abuse at Jaida Menjivar Jan 19, 2018 14:48
--- NOTE | 2018-01-19 14:49 | HHI.FF ---
Face to Face Verification Diagnosis: (1) Renal calculus (2) Hydronephrosis (3) Obstructive uropathy Home Health Nursing Order: Medical education Signs/symptoms of disease process Lee catheter maintenance I have seen patient David Benson on 01/19/18. My clinical findings support the need for the requested home health care services because: Limited ability to care for self I certify that my clinical findings support that this patient is homebound because: Unsafe to leave home unassisted Jaida Menjivar Jan 19, 2018 14:49 Ryley Tolbert DO Jan 19, 2018 16:58
[2018-01-19 16:00] VITALS: BP 128/68; PULSE 57; RESP 16; TEMP 97.5; O2SAT 99
[2018-01-19] MEDS ORDERED: HYDR-3366 PO (16:58)
== END 2018-01-19 19:10 | disposition home or self-care (01) ==
LOC: NEPC 08:36 → NEDA 16:03 → N07B 17:51
PROVIDERS: ADMIT Hospitalist; ATTEND Hospitalist
DX: N13.2 Hydronephrosis with renal and ureteral calculous obstruction (principal); N32.0 Bladder-neck obstruction; N40.1 Benign prostatic hyperplasia with lower urinary tract symptoms; R33.8 Other retention of urine; I11.0 Hypertensive heart disease with heart failure; I50.32 Chronic diastolic (congestive) heart failure; I48.91 Unspecified atrial fibrillation; E78.5 Hyperlipidemia, unspecified; F41.9 Anxiety disorder, unspecified; D17.9 Benign lipomatous neoplasm, unspecified; J44.9 Chronic obstructive pulmonary disease, unspecified; M41.9 Scoliosis, unspecified; M43.10 Spondylolisthesis, site unspecified; Z95.810 Presence of automatic (implantable) cardiac defibrillator
CPT/HCPCS: 71045; 74177; 80048; 80053; 81001; 83690; 85025; 96361; 96374; 96375; 96376; 99285; G0378; J1885; J2270; J2405; J7030; Q9967